=== PATIENT | female | born 1980 | race Caucasian/White ===

== ENCOUNTER 2017-08-31 05:56 | Day surgery (SDC) | payer BC ==
[2017-08-27 15:32] VITALS: BMI 38.7
--- NOTE | 2017-08-27 19:15 | HP ---
DATE OF SURGERY: 08/31/2017 HISTORY OF PRESENT ILLNESS: Ms. Miller is a 36-year-old white female who is having issues with heavy m enstrual bleeding starting in 04/2017. She had a regular period in March and then missed a week in ne and then began to bleed very heavy off and on. She was seen in the emergency room for this and h ad a pelvic ultrasound on 06/05/2017. It was negative except for thickened lining of 20 mm. She patterson s since taken progesterone for over 4 weeks and with no bleeding. Her thyroid and CBC were normal. Her last Pap smear performed was negative on 06/2017. Due to the findings, she was referred to my office and evaluated on 06/22/2017. Her ultrasound again showed thickness of 12 mm with a questiona ble polyp seen in the endometrial cavity, no uterine fibroids or adnexal masses were seen. PAST MEDICAL HISTORY: Negative. PAST SURGICAL HISTORY: Tonsillectomy. OB HISTORY: G1, P0, A1. SOCIAL HISTORY: She is a non-smoker, minimal alcohol use. She is employed. ALLERGIES: She has no known drug allergies. FAMILY HISTORY: Significant for hypertension in her father, diabetes in her grandfather, hyperlipid emia in her father, grandmother has history of breast cancer. PHYSICAL EXAMINATION: VITAL SIGNS: Her blood pressure is 130/80, height 65 inches, weight 226 pounds with a BMI of 37.6. CHEST: Clear to auscultation. HEART: Regular rate and rhythm. S1, S2 heart sounds, no murmurs, rubs or gallops. ABDOMEN: Soft, nontender with no masses or hepatosplenomegaly. PELVIC: Vulva and vagina had no lesions. Cervix had no lesions. Uterus was not enlarged and nonte nder. Adnexa were nontender with no masses. DIAGNOSTIC STUDIES: Ultrasound that was performed showing a 12 mm endometrial thickness on the progestin therapy with qu estionable polyps seen. ASSESSMENT: This is a 36-year-old white female G1, P0, A1 with menometrorrhagia history and thicken ed endometrial lining with possible polyp seen in the endometrial cavity. PLAN: Proceed with diagnostic hysteroscopy with Truclear D\T\C carried on the polypectomy if encoun tered. Risks and benefits of procedure discussed in detail, set for surgery on 08/31/2017.
[2017-08-31] MEDS ORDERED: CEFAZOLIN/Water 2 GM/20 ML SYRINGE ONE (06:16)
[2017-08-31] MEDS ORDERED: Famotidine/PF 20 mg/2ml Vial ONE (06:53)
[2017-08-31] MEDS ORDERED: Midazolam HCl 2 mg/2 ml Vial ONE (06:53)
[2017-08-31] MEDS ORDERED: Ondansetron HCl/PF 4 MG/2 ML Vial ONE (06:53)
[2017-08-31] MEDS ORDERED: Fentanyl 100 MCG/2 ML VIAL ONE ×2 (07:02→08:21)
--- NOTE | 2017-08-31 10:19 | OP ---
DATE OF PROCEDURE: 08/31/2017 PREOPERATIVE DIAGNOSES: 1. A 36-year-old white female with menorrhagia. 2. Thickened endometrial lining suggestive of endometrial polyp. POSTOPERATIVE DIAGNOSES: 1. A 36-year-old white female with menorrhagia. 2. Thickened endometrial lining suggestive of endometrial polyp. PROCEDURE PERFORMED: Diagnostic hysteroscopy with Truclear system with a D\T\C. SURGEON: Lina Crowe M.D. ANESTHESIA: General. ESTIMATED BLOOD LOSS: Less than minute 5 mL. COMPLICATIONS: None. COUNTS: Correct x2. 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 PATHOLOGY: Endometrial curettings. FINDINGS: Normal ectocervix, normal endocervical canal. Endometrial cavity with fluffy endometrial lining throughout with possible polyps seen in the anterior mid segment. This is status post curet tage of the area with removal of the endometrial lining in the possible polyp area. No myoma seen. DISPOSITION: Recovery room, then plan for discharge home. DESCRIPTION OF OPERATIVE PROCEDURE: The patient previously received informed consent in regards to surgery. She was taken back to the operating room where she received a general anesthetic agent wit hout complications. She was placed in the dorsal lithotomy position with the use of Yvon stirrups and prepped and draped in usual sterile fashion. In and out catheterization of bladder was performe d at this time. At this time, a side-arm speculum was placed in the vagina. Anterior lip of cervix grasped with single tooth tenaculum. Uterus sounded to 8 cm. The cervix was dilated to allow a si ze 16 [place] dilator and then the diagnostic Truclear 5 mm hysteroscope was introduced through the ce rvical os into the endometrial cavity and the uterine cavity was distended with saline at 80 mm pres sure. The endometrial cavity was inspected with the previously mentioned findings. Due to the diff use nature of the thickened endometrium throughout, a sharp curet was then placed through the cervic al os in the endometrial cavity and the uterus was curetted in rotational scrapings starting from 12 -9 to 6-3 back to 12 several times with a considerable amount of tissue being removed. This was sen t for final pathology. The diagnostic hysteroscope was then reintroduced through the cervical os an d the endometrial cavity and the uterine cavity was again inspected. The endometrial cavity was not ed to be thinned down to the basilis layer with no evidence of any remnant, polypoid tissue or signi ficant endometrial thickening noted. The hysteroscope was removed. The fluid deficit was noted to be approximately 200 mL of normal saline. The tenaculum was removed. Hemostasis at the tenaculum s ite was confirmed. The speculum was removed. The patient was awakened from anesthesia and transfer red to the recovery room in stable condition.
== END 2017-08-31 10:00 | disposition home or self-care (01) ==
LOC: SDC 05:56
PROVIDERS: ATTEND Obstetrics & Gynecology
PROC: 0UDB8ZX Extraction of Endometrium, Via Natural or Artificial Opening Endoscopic, Diagnostic (ICD-10-PCS; principal; 2017-08-31)
DX: N92.0 Excessive and frequent menstruation with regular cycle (principal); N85.8 Other specified noninflammatory disorders of uterus; Z79.899 Other long term (current) drug therapy; Z90.89 Acquired absence of other organs
CPT/HCPCS: 88305; 96374; J2250; J2270; J2405; J3010; S0028